=== PATIENT | male | born 1965 | race Caucasian/White ===

== ENCOUNTER 2018-10-03 16:56 | Emergency (ER) | payer MEDICAID ==
[~2018-10-03] VITALS: Ht 188 cm; Wt 82.0 kg
[2018-10-03] MEDS ORDERED: KETOROLAC 30MG/ML VIAL IM ONE (19:30)
[2018-10-03 21:03] VITALS: BP 118/73
== END 2018-10-03 21:08 | disposition home or self-care (01) ==
LOC: ER 16:56
DX: M54.42 Lumbago with sciatica, left side (principal); M54.41 Lumbago with sciatica, right side; Z88.0 Allergy status to penicillin
CPT/HCPCS: 72131; 96372; 99284; J1885

== ENCOUNTER 2020-04-04 06:35 | Emergency (ER) | payer MEDICAID ==
[~2020-04-04] VITALS: Ht 180.3 cm; Wt 82.0 kg
[2020-04-04] MEDS ORDERED: ACETAMINOPHEN WITH CODEINE 300/30MG TABLET PO ONE (07:00)
[2020-04-04 07:48] VITALS: BP 117/72
== END 2020-04-04 07:49 | disposition home or self-care (01) ==
LOC: ER 06:35
DX: M25.512 Pain in left shoulder (principal); Z91.81 History of falling; M19.012 Primary osteoarthritis, left shoulder
CPT/HCPCS: 73030; 99283